=== PATIENT | male | born 2000 | race American Indian/Alaskan Native ===

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

== ENCOUNTER 2020-11-27 16:27 | Emergency (ER) | payer OTHER ==
--- NOTE | 2020-11-27 16:45 | Emergency Department Report ---
- General Stated Complaint: TESTICULAR PAIN/CP/BACK PAIN/COLD SX Time Seen by Provider: 11/27/20 16:32 - History of Present Illness Initial Comments: 19-year-old severely male presents emerged department complaining of a myriad of symptoms was been lasting off and on for the past 2 to 3 weeks. Reports having cough congestion And coryza with muscle aches and pains what he calls flulike- like symptoms off and on and and progression pattern. No hemoptysis, no hematemesis no hematochezia. Reports no no vomiting but has had some vague loose stool. Also states that when he coughs the pain does radiate across his chest and achy sensation but reports no orthopnea or palpitations. He also reports having some testicular pain bilaterally what he feels is swelling but with no penile discharge or dysuria. Reports no penile trauma reports no lower abdominal pain reports no pain to the perineal. Severity: mild Quality: dull Consistency: constant Improves With: nothing Worsens With: nothing Associated Symptoms: rhinorrhea, nasal congestion, cough. denies: chest pain, abdominal pain, right sweats, weight loss, epistaxis Treatments Prior to Arrival: none - Related Data Previous Rx's Medication Instructions Recorded Last Taken Type raNITIdine HCl [Zantac] 150 mg PO BID #60 tablet 05/13/19 Unknown Rx Ketorolac [Toradol] 10 mg PO Q6H PRN #10 tablet 11/27/20 Unknown Rx Allergies Allergy/AdvReac Type Severity Reaction Status Date / Time No Known Allergies Allergy Unverified 07/25/18 00:09 ED Review of Systems ROS: Stated complaint: TESTICULAR PAIN/CP/BACK PAIN/COLD SX Other details as noted in HPI Comment: All other systems reviewed and negative ED Past Medical Hx - Past Medical History Hx GERD: Yes Hx Asthma: Yes - Social History Smoking Status: Never Smoker Substance Use Type: None, Marijuana - Medications Home Medications: Home Medications Medication Instructions Recorded Confirmed Last Taken Type raNITIdine HCl [Zantac] 150 mg PO BID #60 tablet 05/13/19 Unknown Rx Ketorolac [Toradol] 10 mg PO Q6H PRN #10 tablet 11/27/20 Unknown Rx ED Physical Exam - General General appearance: alert, in no apparent distress - Head Head exam: Present: atraumatic, normocephalic - Eye Eye exam: Present: normal appearance, EOMI Pupils: Present: normal accommodation - ENT ENT exam: Present: normal exam, mucous membranes moist - Neck Neck exam: Present: normal inspection - Respiratory Respiratory exam: Present: normal lung sounds bilaterally. Absent: respiratory distress - Cardiovascular Cardiovascular Exam: Present: regular rate, normal rhythm. Absent: systolic murmur, diastolic murmur, rubs, gallop - GI/Abdominal GI/Abdominal exam: Present: soft, normal bowel sounds - Rectal Rectal exam: Present: deferred - Extremities Exam Extremities exam: Present: normal inspection, normal capillary refill - Back Exam Back exam: Present: normal inspection. Absent: CVA tenderness (R), CVA tenderness (L) - Neurological Exam Neurological exam: Present: alert, oriented X3, CN II-XII intact - Psychiatric Psychiatric exam: Present: normal affect, normal mood. Absent: anxious, flat affect - Skin Skin exam: Present: warm, dry, intact, normal color. Absent: rash ED Course Vital Signs 11/27/20 16:53 Temperature 98.4 F Pulse Rate 74 Respiratory 16 Rate Blood Pressure 156/93 O2 Sat by Pulse 99 Oximetry ED Medical Decision Making - Radiology Data Radiology results: report reviewed Referring Physician:PEYTON HARGROVEPatient Name:NICKIE MENDIOLAPatient ID:[id number] of :[id number]:MaleAccession:[id number] Date:0698-10-06Cllacy Status:Finalized Findings [facility] [address] [place] [address] XRay Report Signed Patient: NICKIE MENDIOLA MR#: [id number] : 2000 Acct:[id number] Age/Sex: 19 / M ADM Date: 11/27/20 Loc: ED Attending Dr: Ordering Physician: NATHANIEL ALVARADO Date of Service: 11/27/20 Procedure(s): XR chest routine 2V Accession Number(s): [id number] cc: NATHANIEL ALVARADO Fluoro Time In Minutes: CHEST PA AND LATERAL VIEWS INDICATION: cough and cp. COMPARISON: None. FINDINGS: Support devices: None. Heart: Within normal limits. Lungs/Pleura: No acute pulmonary or pleural findings. IMPRESSION: 1. No acute findings. Signer Name: Jerardo Hartman MD Signed: 11/27/2020 5:07 PM Workstation Name: [id number] Transcribed By: Dictated By: Jerardo Hartman MD Electronically Authenticated By: Jerardo Hartman MD Signed Date/Time: 11/27/201706 DD/ 05 TD/TT:Referring Physician:PEYTON HARGROVEPatient Name:NICKIE MENDIOLAPatient ID:[id number] of :[id number]:MaleAccession:[id number] Date:0521-95-63Zhtisu Status:Finalized Findings [facility] [address] [place] [address] Ultrasound Report Signed Patient: NICKIE MENDIOLA MR#: [id number] : 2000 Acct:[id number] Age/Sex: 19 / M ADM Date: 11/27/20 Loc: ED Attending Dr: Ordering Physician: NATHANIEL ALVARADO Date of Service: 11/27/20 Procedure(s): US testicular doppler comp Accession Number(s): [id number] cc: NATHANIEL ALVARADO US testicular doppler comp INDICATION / CLINICAL INFORMATION: pain to testes. COMPARISON: None available. FINDINGS -- RIGHT TESTIS: Size = 5 x 1.9 x 3 cm. - Appearance: No significant abnormality. - Cyst or Mass: None. - Color Doppler Flow: No significant abnormality. EPIDIDYMIS: No significant abnormality. HYDROCELE: Small. VARICOCELE: None demonstrated. FINDINGS -- LEFT TESTIS: Size = 4.8 x 2 x 3.4 cm. - Appearance: No significant abnormality. - Cyst or Mass: None. - Color Doppler Flow: No significant abnormality. EPIDIDYMIS: No significant abnormality. HYDROCELE: Small VARICOCELE: None demonstrated. ADDITIONAL FINDINGS: None. IMPRESSION: 1. No torsion or evidence of epididymoorchitis. Small hydroceles without other significant abnormality. Signer Name: Carlin Maurice MD Signed: 11/27/2020 6:29 PM Workstation Name: [id number] Transcribed By: Dictated By: Carlin Maurice MD Electronically Authenticated By: Carlin Maurice MD Signed Date/Time: 11/27/20 182 DD/ 27 TD/TT: - Medical Decision Making This 19 y/o patient presents with symptoms suspicious for likely viral upper respiratory tract infection. Differential includes bacterial pneumonia, sinusitis, allergic rhinitis,. Do not suspect underlying Cardiopulmonary process. I considered but think unlikely dangerous cause of this patient symptoms to include acute coronary syndrome, CHF or COPD exacerbations, pneumonia, pneumothorax. Patient is nontoxic appearing and not in need of emergent medical intervention. Plan: Reassurance, reassessment, [id number] medications, discharge with PCP follow-up Critical care attestation.: If time is entered above; I have spent that time in minutes in the direct care of this critically ill patient, excluding procedure time. ED Disposition Clinical Impression: Orchialgia, URI (upper respiratory infection) Disposition: - TO HOME OR SELFCARE Is pt being admited?: No Does the pt Need Aspirin: No Condition: Stable Instructions: Viral Respiratory Infection, Cough, Adult, [id number], Testicular Self-Exam, Cool Mist Vaporizer Prescriptions: Ketorolac [Toradol] 10 mg PO Q6H PRN #10 tablet PRN Reason: Pain Referrals: PRIMARY CARE, [Primary Care Provider] - 3-5 Days [facility] [Provider Group] - 3-5 Days
--- NOTE | 2020-11-27 17:11 | XRay Report ---
CHEST PA AND LATERAL VIEWS INDICATION: cough and cp. COMPARISON: None. FINDINGS: Support devices: None. Heart: Within normal limits. Lungs/Pleura: No acute pulmonary or pleural findings. IMPRESSION: 1. No acute findings. Signer Name: Jerardo Hartman MD Signed: 11/27/2020 5:07 PM Workstation Name: [id number]
--- NOTE | 2020-11-27 18:34 | Ultrasound Report ---
US testicular doppler comp INDICATION / CLINICAL INFORMATION: pain to testes. COMPARISON: None available. FINDINGS -- RIGHT TESTIS: Size = 5 x 1.9 x 3 cm. - Appearance: No significant abnormality. - Cyst or Mass: None. - Color Doppler Flow: No significant abnormality. EPIDIDYMIS: No significant abnormality. HYDROCELE: Small. VARICOCELE: None demonstrated. FINDINGS -- LEFT TESTIS: Size = 4.8 x 2 x 3.4 cm. - Appearance: No significant abnormality. - Cyst or Mass: None. - Color Doppler Flow: No significant abnormality. EPIDIDYMIS: No significant abnormality. HYDROCELE: Small VARICOCELE: None demonstrated. ADDITIONAL FINDINGS: None. IMPRESSION: 1. No torsion or evidence of epididymoorchitis. Small hydroceles without other significant abnormalit y. Signer Name: Carlin Maurice MD Signed: 11/27/2020 6:29 PM Workstation Name: [id number]
[2020-11-27 20:53] VITALS: BP 142/86
== END 2020-11-27 20:52 | disposition home or self-care (01) ==
LOC: ED 16:27
DX: N50.819 Testicular pain, unspecified (principal); J06.9 Acute upper respiratory infection, unspecified; K21.9 Gastro-esophageal reflux disease without esophagitis; J45.909 Unspecified asthma, uncomplicated; F12.10 Cannabis abuse, uncomplicated; Z79.899 Other long term (current) drug therapy
CPT/HCPCS: 71046; 93975

== ENCOUNTER 2020-12-12 16:34 | Emergency (ER) | payer OTHER ==
[2020-12-12 16:53] VITALS: BP 143/82
--- NOTE | 2020-12-12 16:56 | Emergency Department Report ---
- General Chief Complaint: Upper Respiratory Infection Stated Complaint: CP/HEAD PAIN Time Seen by Provider: 12/12/20 16:53 Source: patient Mode of arrival: Ambulatory Limitations: No Limitations - History of Present Illness Initial Comments: Patient is a 19-year-old male presents emergency room complaints of URI symptoms for 2 weeks. He states that he has a dry cough, coryza, sneezing, rhinorrhea, chest discomfort after frequent coughing. He denies any fever, nausea, vomiting, diarrhea, shortness of breath, leg swelling, sore throat, ear pain. He has not been taking anything for his symptoms. He states he recently just stopped smoking. He denies any past medical history. He denies any sick contacts, recent travel, recent surgery, recent immobilization. No allergies to medications. Patient was evaluated in the ED for similar symptoms on 11/27/2020 and had a normal chest x-ray. - Related Data Previous Rx's Medication Instructions Recorded Last Taken Type raNITIdine HCl [Zantac] 150 mg PO BID #60 tablet 05/13/19 Unknown Rx Ketorolac [Toradol] 10 mg PO Q6H PRN #10 tablet 11/27/20 Unknown Rx Allergies Allergy/AdvReac Type Severity Reaction Status Date / Time No Known Allergies Allergy Unverified 07/25/18 00:09 ED Review of Systems ROS: Stated complaint: CP/HEAD PAIN Other details as noted in HPI Comment: All other systems reviewed and negative ED Past Medical Hx - Past Medical History Previous Medical History?: Yes Hx GERD: Yes Hx Asthma: Yes - Surgical History Past Surgical History?: No - Social History Smoking Status: Current Every Day Smoker Substance Use Type: None - Medications Home Medications: Home Medications Medication Instructions Recorded Confirmed Last Taken Type raNITIdine HCl [Zantac] 150 mg PO BID #60 tablet 05/13/19 Unknown Rx Ketorolac [Toradol] 10 mg PO Q6H PRN #10 tablet 11/27/20 Unknown Rx ED Physical Exam - General Limitations: No Limitations General appearance: alert, in no apparent distress - Head Head exam: Present: atraumatic, normocephalic - Eye Eye exam: Present: normal appearance - ENT ENT exam: Present: mucous membranes moist - Respiratory Respiratory exam: Present: normal lung sounds bilaterally. Absent: respiratory distress, wheezes, rales, rhonchi, stridor, chest wall tenderness, accessory muscle use, decreased breath sounds, prolonged expiratory - Cardiovascular Cardiovascular Exam: Present: regular rate, normal rhythm, normal heart sounds. Absent: systolic murmur, diastolic murmur, rubs, gallop - Neurological Exam Neurological exam: Present: alert, oriented X3 - Psychiatric Psychiatric exam: Present: normal affect, normal mood - Skin Skin exam: Present: warm, dry, intact ED Course Vital Signs 12/12/20 16:49 Temperature 98.6 F Pulse Rate 86 Respiratory 18 Rate Blood Pressure 143/82 O2 Sat by Pulse 100 Oximetry ED Medical Decision Making - Medical Decision Making Patient is a 19-year-old male presents emergency room complaints of URI symptoms for 2 weeks. He states that he has a dry cough, coryza, sneezing, rhinorrhea, chest discomfort after frequent coughing. He denies any fever, nausea, vomiting, diarrhea, shortness of breath, leg swelling, sore throat, ear pain. He has not been taking anything for his symptoms. He states he recently just stopped smoking. He denies any past medical history. He denies any sick contacts, recent travel, recent surgery, recent immobilization. No allergies to medications. Patient was evaluated in the ED for similar symptoms on 11/27/2020 and had a normal chest x-ray. Vitals are stable. No abnormality on physical examination as documented in chart, breath sounds are clear bilaterally, no wheezing, no rales, no rhonchi. Symptoms likely related to allergies and previous smoking history. He has no clinical signs of bacterial pneumonia or bacterial bronchitis. He had a recent normal chest x-ray. He has no clinical signs of dehydration. PERC criteria negative for PE, PE unlikely. Advised patient Please increase your water intake. Use a humidifier [id number]. Please take Zyrtec or Claritin [id number] and use Flonase nasal spray. May also use Mucinex mlrz-[id number]-[id number] to help with any congestion. Please avoid smoking. Follow-up with a primary care doctor for reexamination. Return to emergency room for any new or worsening symptoms. Critical care attestation.: If time is entered above; I have spent that time in minutes in the direct care of this critically ill patient, excluding procedure time. ED Disposition Clinical Impression: Cough Allergies Qualifiers: Encounter type: initial encounter Qualified Code(s): T78.40XA - Allergy, unspecified, initial encounter Disposition: DC-01 TO HOME OR SELFCARE Is pt being admited?: No Does the pt Need Aspirin: No Condition: Stable Instructions: Cough, Adult, Allergies, Adult Additional Instructions: Please increase your water intake. Use a humidifier [id number]. Please take Zyrtec or Claritin [id number]-[id number] and use Flonase nasal spray. May also use Mucinex [id number]-ljr-[id number] to help with any congestion. Please avoid smoking. Follow-up with a primary care doctor for reexamination. Return to emergency room for any new or worsening symptoms. Referrals: LOWELL BAILEY MD [Staff Physician] - 3-5 Days [facility] [Provider Group] - 3-5 Days [facility] [Outside] - 3-5 Days Time of Disposition: 16:57 Print Language: UZBEK
== END 2020-12-12 17:48 | disposition home or self-care (01) ==
LOC: ED 16:34
DX: R05 Cough (principal); T78.40XA Allergy, unspecified, initial encounter; K21.9 Gastro-esophageal reflux disease without esophagitis; F17.200 Nicotine dependence, unspecified, uncomplicated; Z79.899 Other long term (current) drug therapy
CPT/HCPCS: 99282